=== PATIENT | female | born 1950 | race Caucasian/White ===

== ENCOUNTER → 2017-01-22 | Outpatient (CLI) | payer MEDICARE, BC ==
[~2017-01-22] MED LIST: REGADENOSON 0.4 MG/5 ML SYRINGE ONE
== END | disposition home or self-care (01) ==
LOC: CFH 06:37
PROVIDERS: ATTEND Internal Medicine Cardiovascular Disease
DX: I34.0 Nonrheumatic mitral (valve) insufficiency (principal); I10 Essential (primary) hypertension
CPT/HCPCS: 78452; 93017; 93306; A9502; J2785

== ENCOUNTER → 2017-02-05 | Outpatient (CLI) | payer MEDICARE, BC ==
[~2017-02-05] MED LIST changes: +ASPI-621 PO; +ATOR10TA PO; +B12 PO; +DULO30CA2 PO; +ESTR1VAG3 VG; +HYDR-3245 PO; +HYDR200T PO; +LIDOCAINE PATCH TD; +LISI5TAB7 PO; +MEDR2.5T30 PO; +OMEP-110 PO; -REGADENOSON 0.4 MG/5 ML SYRINGE ONE; +VITAMIN D3 PO
[2017-02-05 11:00] LABS: BLOOD UREA NITROGEN 22 mg/dL (7-18)
[2017-02-05 11:05] LABS: HEMATOCRIT 45.7 % (34.6-47.8); HEMOGLOBIN 15.2 g/dL (11.7-16.4); WHITE BLOOD COUNT 8.4 x10^3/uL (3.4-10)
== END | disposition home or self-care (01) ==
LOC: STAR 09:38
PROVIDERS: ATTEND Internal Medicine Cardiovascular Disease
DX: R94.31 Abnormal electrocardiogram [ECG] [EKG] (principal); R79.1 Abnormal coagulation profile
CPT/HCPCS: 36415; 80048; 85025; 85610; 85730

== ENCOUNTER 2017-02-09 08:45 | Day surgery (SDC) | payer MEDICARE, BC ==
[2017-02-05 10:03] VITALS: BP 156/86
[~2017-02-09] VITALS: Ht 154.9 cm; Wt 84.0 kg
[~2017-02-09 08:45] MED LIST changes: -ASPI-621 PO
[2017-02-09] MEDS ORDERED: SODIUM CHLORIDE 0.9% 1,000 ML IV SCH (08:50)
[2017-02-09] MEDS ORDERED: ASPI-621 PO (09:03)
[2017-02-09] MEDS ORDERED: LIDOCAINE PATCH TD (09:03)
[2017-02-09] MEDS ORDERED: FENTANYL PF 100 MCG/2ML ONE (09:35)
[2017-02-09] MEDS ORDERED: LIDOCAINE 2%, 20ML ONE (09:36)
[2017-02-09] MEDS ORDERED: MIDAZOLAM 1 MG/ML, 5ML ONE (09:36)
[2017-02-09] MEDS ORDERED: VERAPAMIL 2.5 MG/ML, 2ML ONE (09:36)
[2017-02-09] MEDS ORDERED: HEPARIN 1,000 UNITS/ML, 10ML ONE (09:37)
[2017-02-09] MEDS ORDERED: BIVALIRUDIN 250 MG ONE (09:37)
[2017-02-09] MEDS ORDERED: DIPHENHYDRAMINE 50 MG/ML, 1ML ONE (11:36)
[2017-02-09] MEDS ORDERED: SODIUM CHLORIDE 0.9% 500 ML IV SCH (13:00)
[2017-02-09] MEDS ORDERED: HYDROcodone/APAP 10/325 MG TABLET PO SCH (16:00)
[2017-02-09] MEDS ORDERED: ATORVASTATIN 10 MG TABLET PO SCH (21:00)
[2017-02-10] MEDS ORDERED: LISINOPRIL 5 MG TABLET PO SCH (09:00)
[2017-02-10] MEDS ORDERED: ASPIRIN 81 MG TABLET EC PO SCH (09:00)
[2017-02-10] MEDS ORDERED: OMEPRAZOLE 20 MG CAPSULE.DR PO SCH (09:00)
[2017-02-10] MEDS ORDERED: DULOXETINE 30 MG CAPSULE.DR PO SCH (09:00)
[2017-02-10] MEDS ORDERED: HYDROXYCHLOROQUINE 200 MG TABLET PO SCH (09:00)
[2017-02-10] MEDS ORDERED: MEDROXYPROGESTERONE ACETATE 2.5 MG TABLET PO SCH (09:00)
== END 2017-02-09 14:56 | disposition home or self-care (01) ==
LOC: CACL 08:45
PROVIDERS: ATTEND Internal Medicine Cardiovascular Disease
DX: R06.02 Shortness of breath (principal); I99.8 Other disorder of circulatory system; E11.9 Type 2 diabetes mellitus without complications; K21.9 Gastro-esophageal reflux disease without esophagitis; I10 Essential (primary) hypertension; E78.2 Mixed hyperlipidemia; Z88.1 Allergy status to other antibiotic agents; Z88.8 Allergy status to other drugs, medicaments and biological substances; Z87.39 Personal history of other diseases of the musculoskeletal system and connective tissue
CPT/HCPCS: 93454; 99156; 99157; C1769; C1894; J1200; J1644; J2250; J3010; J3490; Q9967; J0583

== ENCOUNTER → 2018-07-05 | Outpatient (CLI) | payer MEDICARE, BC ==
[~2018-07-05] MED LIST changes: +ASPI81TA45 PO; -HYDR200T PO; +HYDR200T72 PO
== END | disposition home or self-care (01) ==
LOC: EDSTATUS 06-27 11:45 → CFH 12:25 → EDSTATUS 13:15
PROVIDERS: ATTEND Internal Medicine Endocrinology, Diabetes & Metabolism
DX: E04.2 Nontoxic multinodular goiter (principal); E21.3 Hyperparathyroidism, unspecified
CPT/HCPCS: 76536

== ENCOUNTER → 2018-09-09 | Outpatient (CLI) | payer MEDICARE, BC ==
[~2018-09-09] MED LIST changes: -ESTR1VAG3 VG; +ESTR1VAG7 VG
== END | disposition home or self-care (01) ==
LOC: CFH 07:03
PROVIDERS: ATTEND Internal Medicine Cardiovascular Disease
DX: I34.0 Nonrheumatic mitral (valve) insufficiency (principal); I10 Essential (primary) hypertension
CPT/HCPCS: 93306

== ENCOUNTER → 2020-09-04 | Outpatient (CLI) | payer MEDICARE, BC ==
[~2020-09-04] MED LIST changes: -HYDR-3245 PO; +HYDR1TAB53 PO
== END | disposition home or self-care (01) ==
LOC: CFH 09:35
PROVIDERS: ATTEND Family Medicine
DX: K76.0 Fatty (change of) liver, not elsewhere classified (principal); K80.20 Calculus of gallbladder without cholecystitis without obstruction; K57.30 Diverticulosis of large intestine without perforation or abscess without bleeding; N28.1 Cyst of kidney, acquired; K59.00 Constipation, unspecified; N10 Acute pyelonephritis; M51.35 Other intervertebral disc degeneration, thoracolumbar region
CPT/HCPCS: 74176